=== PATIENT | female | born 1955 ===

== ENCOUNTER 2020-03-08 07:44 | Outpatient (CLI) | payer OTHER | END 2020-03-08 07:55 | disposition home or self-care (01) | LOC: LAB 07:44 | PROVIDERS: ATTEND Internal Medicine Cardiovascular Disease | DX: R05 Cough (principal); D64.0 Hereditary sideroblastic anemia; J11.1 Influenza due to unidentified influenza virus with other respiratory manifestations; N39.0 Urinary tract infection, site not specified; R06.2 Wheezing; R50.9 Fever, unspecified ==

== ENCOUNTER 2020-11-27 15:05 | Emergency (ER) | payer OTHER ==
[~2020-11-27] VITALS: Ht 165.1 cm; Wt 87.1 kg
[2020-11-27] MEDS ORDERED: NOVOLIN 70100 UNIT/1 SUBCUTANEO (15:22)
[2020-11-27] MEDS ORDERED: ATORVASTATIN CA40 MG PO (15:22)
[2020-11-27] MEDS ORDERED: LOSARTAN-HCTZ1 EAC1 PO (15:23)
[2020-11-27] MEDS ORDERED: RESTORIL30 MG PO (15:23)
[2020-11-27] MEDS ORDERED: CLONAZEPAM1 MG PO (15:23)
[2020-11-27] MEDS ORDERED: DIVALPROEX SOD500 MG PO (15:23)
[2020-11-27] MEDS ORDERED: LEVOTHYROXINE150 MCG PO (15:23)
== END 2020-11-27 19:37 | disposition home or self-care (01) ==
LOC: ER 15:05
DX: B34.9 Viral infection, unspecified (principal); Z03.818 Encounter for observation for suspected exposure to other biological agents ruled out; R06.02 Shortness of breath